=== PATIENT | male | born 1985 | race Caucasian/White ===

== ENCOUNTER 2017-12-29 04:44 | Emergency (ER) | payer OTHER ==
[~2017-12-29] VITALS: Ht 182.9 cm; Wt 95.3 kg
--- NOTE | 2017-12-29 05:12 | PHYS DOC ---
Adult General Chief Complaint Chief Complaint: SUICDAL IDEATION HPI HPI Patient is a 32-year-old male who presents with complaining of suicidal ideations. Patient indicates that he and his girlfriend got into an argument tonight and he became very depressed. He states that prior to coming to the emergency room, he had thought of causing a car accident when his vehicle, driving in a high rate of speed and pulling in front of a semitruck. Patient indicates that he has a long history of depression with previous suicidal gestures. He indicates that he has been in a volatile relationship for the last 7 months. He denies any homicidal ideations. Review of Systems Review of Systems Constitutional: Denies fever or chills [] Respiratory: Denies cough or shortness of breath [] Cardiovascular: Denies chest pain[] GI: Denies abdominal pain, nausea, vomiting or diarrhea [] Musculoskeletal: Complains of chronic lower back pain[] Psychiatric: Reports depression and suicidal ideation [] All other systems were reviewed and found to be within normal limits, except as documented in this note. Allergies Allergies Allergies Coded Allergies Type Severity Reaction Last Updated Verified shellfish derived Allergy Unknown 12/29/17 Yes Physical Exam Physical Exam Constitutional: Well developed, well nourished, no acute distress, non-toxic appearance. [] HENT: Normocephalic, atraumatic, bilateral external ears normal, oropharynx moist, no oral exudates, nose normal. [] Eyes: PERRLA, EOMI, conjunctiva normal, no discharge. [] Neck: Normal range of motion, no tenderness, supple, no stridor. [] Cardiovascular:Heart rate regular rhythm [] Lungs & Thorax: Bilateral breath sounds clear to auscultation [] Abdomen: Bowel sounds normal, soft. [] Skin: Warm, dry, no erythema, no rash. [] Extremities: No tenderness, no cyanosis, no clubbing, ROM intact, no edema. [] Neurologic: Alert and oriented X 3, normal motor function, normal sensory function, no focal deficits noted. [] Psychologic: Depressed mood with admitted suicidal ideation with plan. [] Current Patient Data Vital Signs Vital Signs Date Time Temp Pulse Resp B/P (MAP) Pulse Ox O2 Delivery O2 Flow Rate FiO2 12/29/17 06:02 59 16 142/81 (101) 99 Room Air 8/24/18 05:13 98.7 98.7 Lab Values Laboratory Tests Test 12/29/17 05:10 12/29/17 05:48 White Blood Count 8.0 x10^3/uL (4.0-11.0) Red Blood Count 5.44 x10^6/uL (4.30-5.70) Hemoglobin 15.5 g/dL (13.0-17.5) Hematocrit 44.4 % (39.0-53.0) Mean Corpuscular Volume 82 fL (79-100) Mean Corpuscular Hemoglobin 29 pg (25-35) Mean Corpuscular Hemoglobin Concent 35 g/dL (31-37) Red Cell Distribution Width 13.9 % (11.5-14.5) Platelet Count 242 x10^3/uL (140-400) Neutrophils (%) (Auto) 72 % (31-73) Lymphocytes (%) (Auto) 17 % (24-48) L Monocytes (%) (Auto) 8 % (0-9) Eosinophils (%) (Auto) 1 % (0-3) Basophils (%) (Auto) 1 % (0-3) Neutrophils # (Auto) 5.8 x10^3uL (1.8-7.7) Lymphocytes # (Auto) 1.4 x10^3/uL (1.0-4.8) Monocytes # (Auto) 0.7 x10^3/uL (0.0-1.1) Eosinophils # (Auto) 0.1 x10^3/uL (0.0-0.7) Basophils # (Auto) 0.1 x10^3/uL (0.0-0.2) Sodium Level 139 mmol/L (136-145) Potassium Level 3.4 mmol/L (3.5-5.1) L Chloride Level 103 mmol/L (98-107) Carbon Dioxide Level 28 mmol/L (21-32) Anion Gap 8 (6-14) Blood Urea Nitrogen 16 mg/dL (8-26) Creatinine 1.2 mg/dL (0.7-1.3) Estimated GFR (Cockcroft-Gault) 70.6 BUN/Creatinine Ratio 13 (6-20) Glucose Level 93 mg/dL (70-99) Calcium Level 9.5 mg/dL (8.5-10.1) Total Bilirubin 0.5 mg/dL (0.2-1.0) Aspartate Amino Transferase (AST) 14 U/L (15-37) L Alanine Aminotransferase (ALT) 24 U/L (16-63) Alkaline Phosphatase 74 U/L (46-116) Total Protein 7.7 g/dL (6.4-8.2) Albumin 4.2 g/dL (3.4-5.0) Albumin/Globulin Ratio 1.2 (1.0-1.7) Salicylates Level < 2.8 mg/dL (2.8-20.0) L Salicylate Last Dose Date Unknown Salicylate Last Dose Time Unknown Acetaminophen Level < 2.0 mcg/ml (10-30) L Acetaminophen Last Dose Date Unknown Acetaminophen Last Dose Time Unknown Ethyl Alcohol Level < 10 mg/dL (0-10) Urine Collection Type Unknown Urine Color Yellow Urine Clarity Clear Urine pH 5.5 Urine Specific [place] >=1.030 Urine Protein Negative mg/dL (NEG-TRACE) Urine Glucose (UA) Negative mg/dL (NEG) Urine Ketones (Stick) Negative mg/dL (NEG) Urine Blood Negative (NEG) Urine Nitrite Negative (NEG) Urine Bilirubin Negative (NEG) Urine Urobilinogen Dipstick 1.0 mg/dL (0.2 mg/dL) Urine Leukocyte Esterase Negative (NEG) Urine RBC 0 /HPF (0-2) Urine WBC Occ /HPF (0-4) Urine Squamous Epithelial Cells Occ /LPF Urine Bacteria 0 /HPF (0-FEW) Urine Mucus Marked /LPF Urine Opiates Screen Neg (NEG) Urine Methadone Screen Neg (NEG) Urine Barbiturates Neg (NEG) Urine Phencyclidine Screen Neg (NEG) Urine Amphetamine/Methamphetamine Neg (NEG) Urine Benzodiazepines Screen Neg (NEG) Urine Cocaine Screen Neg (NEG) Urine Cannabinoids Screen Neg (NEG) Urine Ethyl Alcohol Neg (NEG) Laboratory Tests 12/29/17 05:10 Laboratory Tests 12/29/17 05:10 EKG EKG [] Radiology/Procedures Radiology/Procedures [] Course & Med Decision Making Course & Med Decision Making Pertinent Labs and Imaging studies reviewed. (See chart for details) [] Dragon Disclaimer Dragon Disclaimer This electronic medical record was generated, in whole or in part, using a voice recognition dictation system. Departure Departure Impression: Primary Impression: Depression Patient Instructions: Suicidal Feelings, How to Help Yourself Additional Instructions: Thank you for allowing us to participate in your care today. Return if you have suicidal thoughts or are concerned. Follow up with your primary care physician and a mental health provider within 2 days. Call your Primary Doctor tomorrow and inform them of your visit today. If you do not have a primary care provider we are happy to provide you with a list of our primary care providers contact information. This condition should be evaluated by your primary care physician and any recommended consulting services for continued management within 2-3 days after discharge. If at any time, you are having difficulty getting into your primary care doctor or a specialist, return to the emergency department. You may have been prescribed medication or given medication in the emergency department that can change in your level of thinking and ability to operate machinery. Many prescribed medications can cause this. Some commonly prescribed medications include hydrocodone, ativan, and benadryl. Be sure to check with your pharmacist and ask if the medications you've prescribed can affect your level of consciousness. I recommend not operating heavy machinery or driving while on medication such as these. National Suicide Prevention Lifeline 6-561-411-TALK (0633) The Lifeline is a 24-hour toll-free phone line for people in suicidal crisis or emotional distress. An online chat option is also available. Assessment/Plan Assessment/Plan I received signout of this patient at 6 AM. Prior to my arrival, the patient had expressed suicidal ideation with a plan of driving his car off the road. At the time of signout the plan was to have the psychiatric assessment team evaluate the patient. I reviewed the patient's blood work which is unremarkable. I did examine the patient and spoken with him. The primary cause of this patient's stress is his relationship with his girlfriend. He was in an altercation with her earlier this evening when he felt that coming to the emergency department with demonstrate to her that he was serious about their disagreement. He reports that some stressors in his life are extended family financial troubles in addition to his relationship with girl friend. His girlfriend is getting ready to be deported in about 2 months and is currently trying to stop this from happening. Psych Examination: General appearance and behavior: well groomed, maintains good eye contact Speech: normal rate and flow, not pressured Affect:congruent with mood Mood: frustrated prior, now regretful Perception: no illusions or hallucinations Safety: The patient previously was expressing suicidal ideation with plan. Over the course of the night and into this morning I went to me with the patient. He currently has no suicidal ideation. He is regretful for his words that were spoken earlier. He reports that committing suicide would not solve his frustrations during my examination. He reports that he "cannot hurt himself because he has other people depending on him". He has multiple people living in his house who depend on him to pay the rent. He also does not want to hurt himself because he wants to continue having a relationship with his girlfriend. The patient reports that he has access to social support through his girlfriend and his 2 roommates that can help him through this time. He denies having a gun at home. He also has a job he has to perform that he enjoys. Cognition - Level of consciousness: awake - Orientation: oriented to person, place and time - Memory (registration, recent and remote): able to recall short and [facility] events - Judgment: demonstrates understanding of personal issues with appropriate ways of solving them - Insight: able to self reflect The psychiatric assessment team evaluated the patient and feels the patient would benefit from a safety plan with referral for mental health. I agree with the plan and have informed the patient that he should follow-up with the referrals through the psychiatric assessment team. He may benefit from relationship counseling as well. I informed him that if he begins to feel suicidal again that he should return to the emergency department. Patient is agreeable to plan. CHIKI GREEN Jr. DO Dec 29, 2017 05:12 CARLOS NANCE MD Dec 29, 2017 07:17
[2017-12-29 05:25] LABS: BASO # 0.1 x10^3/uL (0.0-0.2); BASO % 1 % (0-3); EOS # 0.1 x10^3/uL (0.0-0.7); EOS % 1 % (0-3); HEMATOCRIT 44.4 % (39.0-53.0); HEMOGLOBIN 15.5 g/dL (13.0-17.5); LYMPH # 1.4 x10^3/uL (1.0-4.8); LYMPH % 17 % (24-48); MEAN CORPUSCULAR HEMOGLOBIN 29 pg (25-35); MEAN CORPUSCULAR HGB CONC 35 g/dL (31-37); MEAN CORPUSCULAR VOLUME 82 fL (79-100); MONO # 0.7 x10^3/uL (0.0-1.1); MONO % 8 % (0-9); NEUT # 5.8 x10^3uL (1.8-7.7); NEUT % 72 % (31-73); PLATELET COUNT 242 x10^3/uL (140-400); RED BLOOD COUNT 5.44 x10^6/uL (4.30-5.70); RED CELL DISTRIBUTION WIDTH 13.9 % (11.5-14.5)
[2017-12-29 05:31] LABS: CALCIUM 9.5 mg/dL (8.5-10.1); CREATININE 1.2 mg/dL (0.7-1.3); GFR 70.6; POTASSIUM 3.4 mmol/L (3.5-5.1)
[2017-12-29 05:37] LABS: ACETAMIN < 2.0 mcg/ml (10-30); ALBUMIN 4.2 g/dL (3.4-5.0); ALBUMIN/GLOBULIN RATIO 1.2 (1.0-1.7); SALIC < 2.8 mg/dL (2.8-20.0); TOTAL BILIRUBIN 0.5 mg/dL (0.2-1.0); TOTAL PROTEIN 7.7 g/dL (6.4-8.2)
[2017-12-29 05:38] LABS: ETHANOL < 10 mg/dL (0-10)
[2017-12-29 06:18] LABS: BILIRUBIN,URINE NEGATIVE (NEG); CLARITY,URINE CLEAR; COLOR,URINE YELLOW; NITRITE,URINE NEGATIVE (NEG); PH,URINE 5.5; PROTEIN,URINE NEGATIVE (NEG-TRACE)
[2017-12-29 06:26] LABS: BARBITURATES NEG (NEG); BENZODIAZEPINES NEG (NEG); CANNABINOIDS NEG (NEG); COCAINE NEG (NEG); METHADONE NEG (NEG); OPIATES NEG (NEG); PHENCYCLIDINE NEG (NEG)
[2017-12-29 06:39] LABS: AMPHETAMINE/METHAMPHETAMINE NEG (NEG)
[2017-12-29 06:51] LABS: SQUAMOUS EPITHELIAL CELL,UR OCC /LPF
[2017-12-29 06:52] LABS: BACTERIA,URINE 0 /HPF (0-FEW); RBC,URINE 0 /HPF (0-2); WBC,URINE OCC /HPF (0-4)
[2017-12-29 07:05] VITALS: BP 140/88
== END 2017-12-29 07:25 | disposition home or self-care (01) ==
LOC: ER 04:44 → EEVIPCON 04:44 → ER 07:25
DX: R45.851 Suicidal ideations (principal); F32.9 Major depressive disorder, single episode, unspecified; Z91.013 Allergy to seafood
CPT/HCPCS: 36415; 80053; 80307; 80329; 81001; 85025; 99284; G0480; G6039; G0479

== ENCOUNTER 2018-03-29 20:20 | Emergency (ER) | payer OTHER ==
[~2018-03-29] VITALS: Ht 182.9 cm; Wt 95.3 kg
--- NOTE | 2018-03-29 20:43 | PHYS DOC ---
Past Medical History Past Medical History: Other Additional Past Medical Histor: HEART MURMUR, CHRONIC BACK PAIN, MDD Past Surgical History: Other Additional Past Surgical Histo: Congenital heart surgery? Smoking: Cigarettes Alcohol Use: Occasionally Drug Use: None Adult General Chief Complaint Chief Complaint: CHEST PAIN HPI HPI This is a 33-year-old male, with a history of a "heart murmur", presenting to the ED via EMS complaining of intermittent retrosternal chest pain for the past 45 minutes. Patient describes the pain as "aching" with episodes lasting ~1 minute. States it began while he was walking at work and was associated with shortness of breath, diaphoresis and lightheadedness. Denies nausea, palpitations or syncope. Patient reports having a long history of similar symptoms occurring about 1x per week, but has not been evaluated recently. Pt had a syncopal episode about 1 month ago during an episode of chest pain that was apparently witnessed by his girlfriend. Pt states he had to have surgery to get "tubes in my heart" as an , and has a history f a "heart murmur". He has seen a inspector and adjuster golf club head in the remote past, but has since been lost to follow up. Pt denies history of blood clots, denies family history of heart problems, father's history is unknown. Patient also reports several month history of nasal congestion and discomfort. Review of Systems Review of Systems Constitutional: Denies fever or chills [] Eyes: Denies change in visual acuity, redness, or eye pain [] HENT: Denies nasal congestion or sore throat [] Respiratory: Reports shortness of breath; Denies cough [] Cardiovascular: Reports chest pressure; Denies palpitations GI: Denies abdominal pain, nausea, vomiting, or diarrhea [] Musculoskeletal: Denies back pain or joint pain [] Integument: Reports diaphoresis; Denies rash or skin lesions [] Neurologic: Reports lightheadedness; Denies syncope, headache, focal weakness or sensory changes [] Complete systems were reviewed and found to be within normal limits, except as documented in this note. Family History Family History negative for heart problems Current Medications Current Medications Current Medications Medications (Trade) Dose Ordered Sig/Bertin Start Time Stop Time Status Last Admin Dose Admin Dexamethasone (Decadron) 10 mg 1X ONCE 03/29/18 23:45 03/29/18 23:46 DC 03/29/18 23:41 10 MG Sodium Chloride 1,000 ml @ 1,000 mls/hr 1X ONCE 03/29/18 21:00 03/29/18 21:59 DC 03/29/18 20:53 1,000 MLS/HR Allergies Allergies Allergies Coded Allergies Type Severity Reaction Last Updated Verified shellfish derived Allergy Intermediate 03/29/18 Yes Physical Exam Physical Exam Constitutional: Well developed, well nourished, anxious, non-toxic appearance. [ ] HENT: Normocephalic, atraumatic. [] Eyes: Conjunctiva normal, no discharge. [] Neck: Normal range of motion, no tenderness, supple, no stridor. [] Cardiovascular: Heart rate regular rhythm, no murmur [] Lungs & Thorax: Bilateral breath sounds clear to auscultation, no chest wall tenderness [] Abdomen: Soft, no tenderness Skin: Warm, dry, no erythema, no rash. [] Extremities: No calf tenderness, ROM intact, no edema. [] Neurologic: Alert and oriented X 3, normal motor function, normal sensory function, no focal deficits noted. [] Psychologic: Affect normal, judgement normal, mood anxious. [] Current Patient Data Vital Signs Vital Signs Date Time Temp Pulse Resp B/P (MAP) Pulse Ox O2 Delivery O2 Flow Rate FiO2 03/29/18 23:04 58 12 120/72 (88) 100 Room Air 03/29/18 21:50 98.2 98.2 Lab Values Laboratory Tests Test 03/29/18 20:25 03/29/18 22:40 White Blood Count 7.8 x10^3/uL (4.0-11.0) Red Blood Count 5.89 x10^6/uL (4.30-5.70) H Hemoglobin 17.5 g/dL (13.0-17.5) Hematocrit 49.5 % (39.0-53.0) Mean Corpuscular Volume 84 fL (79-100) Mean Corpuscular Hemoglobin 30 pg (25-35) Mean Corpuscular Hemoglobin Concent 35 g/dL (31-37) Red Cell Distribution Width 13.5 % (11.5-14.5) Platelet Count 244 x10^3/uL (140-400) Neutrophils (%) (Auto) 66 % (31-73) Lymphocytes (%) (Auto) 25 % (24-48) Monocytes (%) (Auto) 8 % (0-9) Eosinophils (%) (Auto) 2 % (0-3) Basophils (%) (Auto) 1 % (0-3) Neutrophils # (Auto) 5.1 x10^3uL (1.8-7.7) Lymphocytes # (Auto) 1.9 x10^3/uL (1.0-4.8) Monocytes # (Auto) 0.6 x10^3/uL (0.0-1.1) Eosinophils # (Auto) 0.1 x10^3/uL (0.0-0.7) Basophils # (Auto) 0.1 x10^3/uL (0.0-0.2) Prothrombin Time 14.1 SEC (11.7-14.0) H Prothrombin Time INR 1.1 (0.8-1.1) PTT 33 SEC (24-38) D-Dimer (Georgina) < 0.27 ug/mlFEU Sodium Level 140 mmol/L (136-145) Potassium Level 3.4 mmol/L (3.5-5.1) L Chloride Level 105 mmol/L (98-107) Carbon Dioxide Level 25 mmol/L (21-32) Anion Gap 10 (6-14) Blood Urea Nitrogen 8 mg/dL (8-26) Creatinine 1.0 mg/dL (0.7-1.3) Estimated GFR (Cockcroft-Gault) 86.6 BUN/Creatinine Ratio 8 (6-20) Glucose Level 91 mg/dL (70-99) Calcium Level 9.6 mg/dL (8.5-10.1) Magnesium Level 2.0 mg/dL (1.8-2.4) Total Bilirubin 0.6 mg/dL (0.2-1.0) Aspartate Amino Transferase (AST) 13 U/L (15-37) L Alanine Aminotransferase (ALT) 26 U/L (16-63) Alkaline Phosphatase 78 U/L (46-116) Creatine Kinase 60 U/L (39-308) Creatine Kinase MB (Mass) 0.8 ng/mL (0.0-3.6) Creatine Kinase MB Relative Index % (0-4) Troponin I Quantitative < 0.017 ng/mL (0.000-0.055) < 0.017 ng/mL (0.000-0.055) VE-Yig-B-Type Natriuretic Peptide 53 pg/mL (0-124) Total Protein 7.8 g/dL (6.4-8.2) Albumin 4.1 g/dL (3.4-5.0) Albumin/Globulin Ratio 1.1 (1.0-1.7) Lipase 139 U/L (73-393) Laboratory Tests 03/29/18 20:25 Laboratory Tests 03/29/18 20:25 EKG EKG @2020 sinus bradycardia at 59bpm, NO ST elevation, nonspecific t wave inversion III, RBBB Radiology/Procedures Radiology/Procedures PROCEDURE: CHEST PA & LATERAL PA and lateral views of the chest. Comparison: None. Indication: Chest pain, h/o heart murmer and cardiac surgery Findings: Normal lung volume. No focal airspace disease. Normal pulmonary vasculature. No pleural effusion. No pneumothorax. The cardiomediastinal silhouette is normal in appearance. The great vessels are normal. No acute osseous abnormality. Impression: 1. No acute cardiopulmonary process. Electronically signed by: Josué Butts MD (03/29/2018 10:56 PM) [facility] Course & Med Decision Making Course & Med Decision Making Pertinent Labs and Imaging studies reviewed. (See chart for details) This is a 33 year old male presenting with chest pain. No cardiac risk factors other than a history of unspecified congenital heart problem. PE ruled out with PERC. HEART score 1 due to nonspecific EKG. Labs obtained and posted to chart. Troponin x 2 negative. D-dimer within normal limits. CXR clear. Patient also reports concern for possible sinusitis is been ongoing for the past several months. Symptomatic treatment provided with oral steroid. Empiric antibiotics prescribed with education and instruction to watch and wait 48 hours if symptoms continue or worsen and antibiotics to be initiated.. Patient stable for discharge with outpatient follow-up with PCP. Discussed findings and plan with patient, who acknowledges understanding and agreement. Dragon Disclaimer Dragon Disclaimer This electronic medical record was generated, in whole or in part, using a voice recognition dictation system. Departure Departure Impression: Primary Impression: Chest pain Additional Impression: Sinusitis Disposition: HOME, SELF-CARE Condition: STABLE Referrals: NO PCP (PCP) LORETA VENEGAS MD Patient Instructions: Chest Pain (Nonspecific), [id number], Sinusitis, Easy- to-Read Additional Instructions: Hold antibiotics for 48 hours. If symptoms worsen or for fever > 100.3 F after 48 hours then start antibiotics as prescribed. Scripts Famotidine (PEPCID) 20 Mg Tablet 20 MG PO BID, #14 TAB Prov: GABE LEOS DO 03/29/18 Amoxicillin/Potassium Clav (AUGMENTIN 875-125 TABLET) 1 Each Tablet 1 TAB PO BID, #14 TAB Prov: GABE LEOS DO 03/29/18 Problem Qualifiers Primary Impression: Chest pain Chest pain type: unspecified Qualified Codes: R07.9 - Chest pain, unspecified Additional Impression: Sinusitis Sinusitis location: unspecified location Chronicity: unspecified Qualified Codes: J32.9 - Chronic sinusitis, unspecified GABE LEOS DO Mar 29, 2018 20:43
[2018-03-29 20:44] LABS: BASO # 0.1 x10^3/uL (0.0-0.2); BASO % 1 % (0-3); EOS # 0.1 x10^3/uL (0.0-0.7); EOS % 2 % (0-3); HEMATOCRIT 49.5 % (39.0-53.0); HEMOGLOBIN 17.5 g/dL (13.0-17.5); LYMPH # 1.9 x10^3/uL (1.0-4.8); LYMPH % 25 % (24-48); MEAN CORPUSCULAR HEMOGLOBIN 30 pg (25-35); MEAN CORPUSCULAR HGB CONC 35 g/dL (31-37); MEAN CORPUSCULAR VOLUME 84 fL (79-100); MONO # 0.6 x10^3/uL (0.0-1.1); MONO % 8 % (0-9); NEUT # 5.1 x10^3uL (1.8-7.7); NEUT % 66 % (31-73); PLATELET COUNT 244 x10^3/uL (140-400); RED BLOOD COUNT 5.89 x10^6/uL (4.30-5.70); RED CELL DISTRIBUTION WIDTH 13.5 % (11.5-14.5); WHITE BLOOD COUNT 7.8 x10^3/uL (4.0-11.0)
[2018-03-29 20:52] LABS: CALCIUM 9.6 mg/dL (8.5-10.1); GFR 86.6; POTASSIUM 3.4 mmol/L (3.5-5.1)
[2018-03-29 21:00] LABS: ALBUMIN 4.1 g/dL (3.4-5.0); ALBUMIN/GLOBULIN RATIO 1.1 (1.0-1.7); PROTHROMBIN TIME PATIENT 14.1 SEC (11.7-14.0); TOTAL BILIRUBIN 0.6 mg/dL (0.2-1.0); TOTAL PROTEIN 7.8 g/dL (6.4-8.2)
[2018-03-29] MEDS ORDERED: IV NORMAL SALINE 1000ML BAG 1,000 ML IV ONE (21:00)
[2018-03-29 21:07] LABS: CREATINE KINASE 60 U/L (39-308)
--- NOTE | 2018-03-29 21:13 | EKG ---
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
--- NOTE | 2018-03-29 22:59 | RAD ---
PA and lateral views of the chest. Comparison: None. Indication: Chest pain, h/o heart murmer and cardiac surgery Findings: Normal lung volume. No focal airspace disease. Normal pulmonary vasculature. No pleural effusion. No pneumothorax. The cardiomediastinal silhouette is normal in appearance. The great vessels are normal. No acute osseous abnormality. Impression: 1. No acute cardiopulmonary process. Electronically signed by: Josué Butts MD (03/29/2018 10:56 PM) [facility]
[2018-03-29 23:04] VITALS: BP 120/72
[2018-03-29] MEDS ORDERED: AMOX1TAB61 PO (23:34)
[2018-03-29] MEDS ORDERED: FAMO-63 PO (23:36)
[2018-03-29] MEDS ORDERED: DEXAMETHASONE 4 MG TABLET PO ONE (23:45)
== END 2018-03-29 23:35 | disposition home or self-care (01) ==
LOC: ER 20:20
DX: R07.2 Precordial pain (principal); J32.9 Chronic sinusitis, unspecified; G89.29 Other chronic pain; R42 Dizziness and giddiness; F17.210 Nicotine dependence, cigarettes, uncomplicated; Z91.013 Allergy to seafood
CPT/HCPCS: 36415; 71046; 80053; 82553; 83690; 83735; 83880; 84484; 85025; 85379; 85610; 85730; 93005; 96360; 99284; J7030; J8540